=== PATIENT | female | born 1975 | race Asian ===

== ENCOUNTER 2017-10-27 11:00 | Emergency (ER) | payer OTHER ==
[~2017-10-27] VITALS: Ht 162.6 cm; Wt 66.8 kg
[~2017-10-27 11:00] MED LIST: DIPH25CA85 PO
[2017-10-27] MEDS ORDERED: FERR-89 PO (11:07)
[2017-10-27] MEDS ORDERED: DULO30CA2 PO (11:07)
[2017-10-27] MEDS ORDERED: HYDR-3112 PO (11:07)
[2017-10-27] MEDS ORDERED: MECL-111 PO (11:07)
[2017-10-27] MEDS ORDERED: HYDR25TA PO (11:07)
[2017-10-27 11:25] VITALS: BP 128/80
[2017-10-27 12:30] LABS: BASOPHILS % (AUTO) 0.8 % (0.0-2.0); EOSINOPHILS % (AUTO) 2.5 % (1.0-6.0); HEMATOCRIT 36.9 % (36-46); HEMOGLOBIN 12.5 g/dL (12.0-16.0); LYMPHOCYTES # (AUTO) 1.5 K/uL (1.0-4.8); LYMPHOCYTES % (AUTO) 15.3 % (22.0-44.0); MEAN CORPUSCULAR HEMOGLOBIN 29.5 pg (26.0-34.0); MEAN CORPUSCULAR HGB CONC 33.9 G/dL (31.0-37.0); MEAN CORPUSCULAR VOLUME 87 fL (80-100); MONOCYTES # (AUTO) 0.5 K/uL (0.1-1.0); NEUTROPHILS # (AUTO) 7.6 K/uL (1.8-7.7); NEUTROPHILS % (AUTO) 76.4 % (40.0-70.0); PLATELET COUNT (AUTO) 284 K/uL (150-450); RED BLOOD CELL COUNT(AUTO) 4.24 MIL/uL (4.00-5.20)
[2017-10-27 12:37] LABS: ANION GAP 7 mmol/L (8-16); CALCIUM, TOTAL 8.9 mg/dL (8.8-10.5); CARBON DIOXIDE 31 mmol/L (22-29); CHLORIDE 100 mmol/L (98-107); CREATININE 0.92 mg/dL (0.60-1.30); GLOMERULAR FILTR. RATE CALC > 60 mL/min (>60); GLUCOSE,RANDOM 86 mg/dL (70-110); SODIUM SERUM 138 mmol/L (136-145); UREA NITROGEN, BLOOD 12 mg/dL (7-18)
== END 2017-10-27 13:17 | disposition home or self-care (01) ==
LOC: EMS 11:01
DX: R20.2 Paresthesia of skin (principal); M25.562 Pain in left knee; G89.29 Other chronic pain; F17.210 Nicotine dependence, cigarettes, uncomplicated; I10 Essential (primary) hypertension; Z88.2 Allergy status to sulfonamides; Z88.1 Allergy status to other antibiotic agents; Z91.040 Latex allergy status
CPT/HCPCS: 70450; 99285; 99406